=== PATIENT | female | born 1945 | race Caucasian/White ===

== ENCOUNTER 2020-09-29 14:17 | Emergency (ER) | payer MEDICARE, OTHER ==
[~2020-09-29 14:17] MED LIST: ASPIR-LOW81 MG PO; GLUCOPHAGE 500500 MG PO; LEVAQUIN750 MG PO; LISINOPRIL30 MG PO; NORVASC 5 MG TAB5 MG PO; TRAVEL SICKNESS25 MG PO
[2020-09-29 15:41] LABS: HEMOGLOBIN 11.8 gm/dl (12.3-15.3); RED BLOOD COUNT 4.02 M/UL (4.00-5.10); WHITE BLOOD COUNT 13.5 K/UL (4.5-11.0)
[2020-09-29] MEDS ORDERED: OMNICEF 300 MG300 MG PO (18:13)
[2020-09-29] MEDS ORDERED: CEFDINIR250 MG/5 M PO (18:27)
== END 2020-09-29 18:45 | disposition home or self-care (01) ==
LOC: ER1 14:17
PROVIDERS: Emergency Medicine
DX: S32.502A Unspecified fracture of left pubis, initial encounter for closed fracture (principal); N39.0 Urinary tract infection, site not specified; F03.90 Unspecified dementia, unspecified severity, without behavioral disturbance, psychotic disturbance, mood disturbance, and anxiety; E11.9 Type 2 diabetes mellitus without complications; W19.XXXA Unspecified fall, initial encounter
CPT/HCPCS: 71045; 80053; 81001; 83605; 83690; 85025; 96372; 99284; J0696; Q9967